=== PATIENT | male | born 1985 | race African-American/Black ===

== ENCOUNTER 2017-12-21 05:47 | Emergency (ER) | payer OTHER ==
[~2017-12-21] VITALS: Ht 195.6 cm; Wt 109.3 kg
[2017-12-21 06:50] LABS: ALBUMIN 5.6 g/dL (3.2-4.8); CHLORIDE 93 mEq/L (99-109); POTASSIUM 5.3 mEq/L (3.7-5.4); SODIUM 131 mEq/L (136-147)
[2017-12-21 06:51] LABS: MAGNESIUM 3.2 mg/dL (1.3-2.7)
[2017-12-21 06:52] LABS: GLUCOSE 117 mg/dL (70-99)
[2017-12-21 06:53] LABS: TOTAL PROTEIN 9.7 g/dL (6.4-8.3)
[2017-12-21 06:54] LABS: TOTAL BILIRUBIN 0.8 mg/dL (0.0-1.0)
[2017-12-21 06:56] LABS: ALKALINE PHOSPHATASE 133 IU/L (3-129)
[2017-12-21 06:57] LABS: CREATININE 4.2 mg/dL (0.6-1.3); GFR ESTIMATE (CALCULATED) 21 mL/min/ (58.99-99999); UREA NITROGEN (BUN) 37 mg/dL (9-23)
[2017-12-21 06:58] LABS: AST (GOT) 55 IU/L (2-34)
[2017-12-21 06:59] LABS: ALT (GPT) 51 IU/L (3-49); LIPASE 22 U/L (1.0-51.0)
[2017-12-21 07:05] LABS: CK-MB 14.4 ng/mL (0.0-4.9)
[2017-12-21 08:01] LABS: CKMB RELATIVE INDEX 0.4 (0.0-3.9); TOTAL CK 3869 IU/L (1-294)
[2017-12-21 08:02] LABS: CREATINE KINASE 3869 IU/L (1-294)
[2017-12-21 08:38] LABS: HEMATOCRIT 46.4 % (38.0-50.0); HEMOGLOBIN 15.9 G/DL (12.5-16.6); MCH 27.4 PG (29.0-34.0); MCHC 34.3 G/DL (30.0-36.0); PLATELET COUNT 286 K/uL (156-360); RBC DIS.WIDTH-CV 12.4 % (11.8-14.6); RBC DIS.WIDTH-SD 35.4 % (39-53); WHITE BLOOD COUNT 16.5 K/uL (4.1-10.2)
[2017-12-21 09:07] VITALS: BP 117/56
== END 2017-12-21 09:10 | disposition short-term general hospital (02) ==
LOC: EME → EDBD 05:47 → EME 09:10
PROVIDERS: Emergency Medicine
DX: M62.82 Rhabdomyolysis (principal); N17.9 Acute kidney failure, unspecified; Z87.891 Personal history of nicotine dependence
CPT/HCPCS: 80053; 81003; 82550; 82553; 83690; 83735; 85027; 99281; 99284; J7030